=== PATIENT | female | born 1965 | race Caucasian/White ===

== ENCOUNTER 2021-09-24 18:17 | Emergency (ER) | payer OTHER ==
[2021-09-24 19:27] LABS: HEMOGLOBIN 11.6 gm/dl (12.3-15.3); RED BLOOD COUNT 4.18 M/UL (4.00-5.10); WHITE BLOOD COUNT 4.8 K/UL (4.5-11.0)
[2021-09-24 20:00] LABS: BUN/CREATININE RATIO 13 (0-10)
== END 2021-09-24 20:45 | disposition home or self-care (01) ==
LOC: ER1 18:17
PROVIDERS: Student in an Organized Health Care Education/Training Program
DX: I49.3 Ventricular premature depolarization (principal); E11.9 Type 2 diabetes mellitus without complications; I25.10 Atherosclerotic heart disease of native coronary artery without angina pectoris; Z20.822 Contact with and (suspected) exposure to COVID-19
CPT/HCPCS: 0240U; 71045; 80053; 82550; 82553; 84439; 84443; 84484; 85025; 93005; 99285